=== PATIENT | female | born 1955 | race Caucasian/White ===

== ENCOUNTER 2018-01-09 06:29 | Day surgery (SDC) | payer BC ==
[2018-01-09] MEDS ORDERED: Lactated Ringers 1,000 ML IV SCH (06:45)
[2018-01-09] MEDS ORDERED: Propofol 200 MG/20 ML SDV IV ONE (08:00)
[2018-01-09] MEDS ORDERED: Midazolam 1 MG/ML 2 ML SDV IV ONE (08:00)
--- NOTE | 2018-01-09 08:18 | PCM.OPNOTE ---
- General Post-Op/Procedure Note Date of Surgery/Procedure: 01/09/18 Operative Procedure(s): incomplete c scope Findings: sigmoid diverticulosis Pre Op Diagnosis: screening Post-Op Diagnosis: incomplete c scope. sigmoid diverticulosis Anesthesia Technique: MAC Primary Surgeon: Jorge Luis Menendez Anesthesia Provider: Ramya Wolfe Pathology: none Complications: None Condition: Good Free Text/Narrative:: see dictation
--- NOTE | 2018-01-09 10:55 | OR ---
DATE OF OPERATION: 01/09/2018 SURGEON: Jorge Luis Menendez MD PROCEDURE PERFORMED: Incomplete colonoscopy. PREOPERATIVE DIAGNOSIS: Need for screening exam. POSTOPERATIVE DIAGNOSIS: Normal exam of the splenic flexure, except for some sigmoid diverticulosis. INDICATIONS FOR PROCEDURE: This is a 62-year-old white female who presents for screening colonoscopy. She was offered and accepted same. DESCRIPTION OF OPERATION: After an excellent IV sedation was administered, digital rectal exam was performed. No marked abnormality was noted. Flexible colonoscope was inserted and advanced to the splenic flexure, where an extremely sharp angle was encountered. Attempts to advance the scope beyond this, despite abdominal wall pressure and maneuvering the patient, were not successful. Rather than risk perforation, we elected to terminate the procedure. The following findings were noted. Descending colon, unremarkable. Sigmoid, occasional diverticula. Rectum and anus, unremarkable. Colon was deflated. Scope was removed. The patient tolerated the procedure well and was taken to Recovery in a good condition. We will be getting a barium enema and further workup depending on what we find. /[id number] /MODL
== END 2018-01-09 09:55 | disposition home or self-care (01) ==
LOC: FB.SDS 06:29 → MERGE 08:00 → FB.SDS 09:55
PROVIDERS: ATTEND Surgery
DX: Z12.11 Encounter for screening for malignant neoplasm of colon (principal); K57.30 Diverticulosis of large intestine without perforation or abscess without bleeding; F17.210 Nicotine dependence, cigarettes, uncomplicated; Z79.899 Other long term (current) drug therapy; Z88.1 Allergy status to other antibiotic agents; Z91.030 Bee allergy status; Z98.890 Other specified postprocedural states
CPT/HCPCS: 45378; J2250; J2704; J7120

== ENCOUNTER 2023-10-02 08:03 | Emergency (ER) | payer MEDICARE, OTHER ==
[2023-10-02] MEDS: Sodium Chloride 0.9% 1,000 ML IV ONE (08:36)
[2023-10-02 08:55] LABS: BASOPHILS ABSOLUTE AUTO 0.1 x10-3/uL (0.0-0.1); BASOPHILS PERCENT AUTO 1.1 % (0.2-1.5); EOSINOPHILS ABSOLUTE AUTO 0.2 x10-3/uL (0.0-0.8); EOSINOPHILS PERCENT AUTO 3.2 % (0.6-8.1); HEMATOCRIT 35.4 % (34.2-48.2); HEMOGLOBIN 11.6 g/dL (11.4-15.5); LYMPHOCYTES ABSOLUTE AUTO 1.4 x10-3/uL (1.0-4.4); LYMPHOCYTES PERCENT AUTO 22.6 % (18.4-52.1); MEAN CORPUSCULAR HEMOGLOBIN 33.3 pg (23.9-33.9); MEAN CORPUSCULAR HGB CONC 32.9 g/dL (31.9-34.8); MEAN CORPUSCULAR VOLUME 101.1 fL (76.7-100.5); MEAN PLATELET VOLUME 8.4 fL (7.1-12.4); MONOCYTES ABSOLUTE AUTO 0.4 x10-3/uL (0.3-1.0); MONOCYTES PERCENT AUTO 6.2 % (4.4-15.7); NEUTROPHILS ABSOLUTE AUTO 4.1 x10-3/uL (1.5-6.3); NEUTROPHILS PERCENT AUTO 66.9 % (30.8-76.2); PLATELET COUNT,PLT 224 x10(3)uL (151-488); RED CELL DISTRIBUTION WIDTH 13.6 % (12.3-16.5); WHITE BLOOD CELL COUNT,WBC 6.1 x10-3/uL (3.0-10.3)
[2023-10-02 09:03] LABS: BLOOD UREA NITROGEN,BUN 14 mg/dL (7-18); CALCIUM 8.5 mg/dL (8.6-10.2); CARBON DIOXIDE,CO2 27 mmol/L (21-32); CHLORIDE,CL 107 mmol/L (100-110); CREATININE 0.7 mg/dL (0.55-1.02); ESTIMATED GFR 95 mL/min (>60); GLUCOSE RANDOM 122 mg/dL (80-116); POTASSIUM,K 3.7 mmol/L (3.5-5.3); SODIUM,NA 142 mmol/L (135-145)
[2023-10-02 09:09] LABS: A/G RATIO 1.1; ALANINE AMINOTRANSFERASE,ALT 21 U/L (12-36); ALBUMIN 3.3 g/dL (3.2-4.6); ALKALINE PHOSPHATASE 31 IU/L (56-112); ASPARTATE AMNIOTRANSFERASE,AST 19 IU/L (5-25); BILIRUBIN TOTAL 0.3 mg/dL (0.1-1.3); MAGNESIUM 1.8 mg/dL (1.8-2.5); PROTEIN TOTAL,TP 6.4 g/dL (6.0-8.0)
[2023-10-02 09:55] LABS: BILIRUBIN,URINE NEGATIVE (NEGATIVE); GLUCOSE,URINE NORMAL (NORMAL); KETONES,URINE NEGATIVE (NEGATIVE); LEUKOCYTE ESTERASE,URINE NEGATIVE (NEGATIVE); NITRITE,URINE NEGATIVE (NEGATIVE); OCCULT BLOOD,URINE NEGATIVE (NEGATIVE); PROTEIN,URINE NEGATIVE (NEGATIVE); UROBILINOGEN,URINE NORMAL (NEGATIVE)
[2023-10-02 10:05] LABS: APPEARANCE,URINE CLEAR (CLEAR); COLOR,URINE YELLOW (YELLOW); RBC,URINE 0-5 (0-5); SQUAMOUS EPITHELIAL CELLS,UR RARE (NS,R,O); WBC,URINE 0-5 (0-5)
[2023-10-02 10:06] LABS: BACTERIA,URINE RARE (NS)
== END 2023-10-02 11:20 | disposition home or self-care (01) ==
LOC: FB.ED 08:03
DX: R55 Syncope and collapse (principal); Z91.030 Bee allergy status
CPT/HCPCS: 36415; 80053; 81001; 83735; 84484; 85025; 85379; 96360; 99284-25; J7030